=== PATIENT | female | born 1985 | race Caucasian/White ===

== ENCOUNTER → 2016-07-03 | Day surgery (SDC) | payer OTHER ==
[~2016-07-03] MED LIST: LIDOCAINE HCL 1% PF 30 ML VIAL ONE; SODIUM BICARBONATE 8.4% INJ 50 ML ONE
[2016-07-03 10:50] VITALS: BP 145/77; PULSE 56; RESP 16; TEMP 99.1; O2SAT 99
[2016-07-03 12:00] VITALS: BP 128/82; PULSE 63; RESP 18; TEMP 98.7; O2SAT 100
[2016-07-03 12:15] VITALS: BP 125/82; PULSE 63; RESP 20; O2SAT 98
[2016-07-03 12:30] VITALS: BP 133/82; PULSE 56; RESP 20; O2SAT 100
--- NOTE | 2016-07-03 14:27 | RADRPT ---
EXAM DATE/TIME: 07/03/2016 10:59 [facility] COMPARISON: No previous studies available for comparison. INDICATIONS : Right palpable lymph node. MEDICAL HISTORY : Right neck palpable lymph node. SURGICAL HISTORY : None. ENCOUNTER: Initial ACUITY: 1 day PAIN SCORE: 2/10 LOCATION: Right neck ORGAN: Right lymph node SPECIMENS: One fine needle aspirate(s) submitted for pathologic evaluation. DEVICE: 22 gauge needle Post procedure scanning reveals no hematoma or other complication. The possibility does exist that the tissue obtained will be non-diagnostic. If the sample is non-lizz gnostic a repeat biopsy or surgical biopsy may need to be performed. TECHNIQUE: 1. Ultrasound guidance for needle biopsy. 2. Needle biopsy. The risks, benefits, and alternatives to ultrasound guided needle biopsy were explained to the patien t in detail including the risk of bleeding and infection. Written and verbal informed consent was ob tained. With the patient on the ultrasound table, images were obtained. Overlying skin was prepped and drape d in the usual sterile fashion and Lidocaine was utilized as a local anesthetic. An initial attempt was made to obtain the core biopsy of the 1 cm lymph node in the right neck. Zita use this node is very mobile I could not obtain core biopsy. 20 gauge aspirate was submitted in RPMI . The patient tolerated the procedure well and left the ultrasound suite in stable condition. CONCLUSION: Uncomplicated ultrasound guided needle biopsy. Dylan Velazquez MD FACR on July 03, 2016 at 14:24 Board Certified Radiologist. This report was verified electronically.
--- NOTE | 2016-07-03 14:28 | RADRPT ---
EXAM DATE/TIME: 07/03/2016 10:59 [facility] COMPARISON: No previous studies available for comparison. INDICATIONS : Left palpable lymph node. MEDICAL HISTORY : Left neck palpable lymph node. SURGICAL HISTORY : None. ENCOUNTER: Initial ACUITY: 1 day PAIN SCORE: 3/10 LOCATION: Left neck ORGAN: Left lymph node SPECIMENS: Two core specimen(s) submitted for pathologic evaluation. DEVICE: 18 gauge Bio Pince needle Post procedure scanning reveals no hematoma or other complication. The possibility does exist that the tissue obtained will be non-diagnostic. If the sample is non-lizz gnostic a repeat biopsy or surgical biopsy may need to be performed. TECHNIQUE: 1. Ultrasound guidance for needle biopsy. 2. Needle biopsy. The risks, benefits, and alternatives to ultrasound guided needle biopsy were explained to the patien t in detail including the risk of bleeding and infection. Written and verbal informed consent was ob tained. With the patient on the ultrasound table, images were obtained. Overlying skin was prepped and drape d in the usual sterile fashion and Lidocaine was utilized as a local anesthetic. Under direct ultrasound visualization 2, 18 gauge cores were obtained and submitted for pathological evaluation in RPMI.. The patient tolerated the procedure well and left the ultrasound suite in stable condition. CONCLUSION: Uncomplicated ultrasound guided needle biopsy of left neck adenopathy submitted in formalin and RPMI. Once slide was submitted as well. Dylan Velazquez MD FACR on July 03, 2016 at 14:25 Board Certified Radiologist. This report was verified electronically.
== END | disposition home or self-care (01) ==
LOC: HRAD 09:55
PROVIDERS: ATTEND Otolaryngology Otolaryngology/Facial Plastic Surgery
DX: R59.0 Localized enlarged lymph nodes (principal)
CPT/HCPCS: 38505; 76942; 88333